=== PATIENT | male | born 1970 | race Caucasian/White ===

== ENCOUNTER 2016-09-26 23:38 | Emergency (ER) | payer OTHER ==
[~2016-09-26] VITALS: Ht 172.7 cm; Wt 90.4 kg
[~2016-09-26 23:38] MED LIST: BACTDS PO; BEN50 PO; CEPH-443 PO; CLIN-73 PO; HYDR-762 PO; IBUP-1542 PO; ONDA4TAB35 PO; PRED20TA PO; TAMS-14 PO
[2016-09-26 23:51] VITALS: Ht 172.7 cm; Wt 90.4 kg
[2016-09-27] MEDS ORDERED: FLUORESCEIN STRIP RIGHT EYE ONE (01:30)
[2016-09-27] MEDS ORDERED: TETRACAINE 0.5% 4 ML OPH RIGHT EYE ONE (01:30)
--- NOTE | 2016-09-27 02:25 | RADRPT ---
PROCEDURE: Ultrasound examination of the right orbit. CLINICAL INDICATION: Right eye redness and pain. TECHNIQUE: Multiple sonographic images of the right orbital globe and retina were obtained. COMPARISON: None. FINDINGS: The right orbital globe is normal in size and configuration. There is no abnormal echogenicity. The retina is unremarkable. No echogenic foreign body is identified. IMPRESSION: Unremarkable ultrasound examination. .Nam Renteria MD, MD Date Time Electronically viewed and signed by .Nam Renteria MD, on 09/27/2016 02:25 .T/
[2016-09-27] MEDS ORDERED: TBR.3OP5 RIGHT EYE (02:44)
[2016-09-27] MEDS ORDERED: ERYTOPOI RIGHT EYE (02:48)
--- NOTE | 2016-09-27 02:55 | ERD ---
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 It happened around 1 or 2 PM. Pain is described as a burning sensation. Patient states the pain is intermittent. He denies any vision loss. Denies any headache. Patient denies any photophobia or pain with eye movements. He denies any other eye trauma. ROS 12 point review of systems was done, all negative except per HPI. Medications Home Meds Active Scripts Erythromycin* (Erythromycin* Ophthalmic) 1 Applic Oint, 1 APPLIC RIGHT EYE QID for 7 Days Prov:FRANKY OLMEDO 09/27/16 Clindamycin Hcl* (Clindamycin Hcl*) 300 Mg Capsule, 300 MG PO TID for 10 Days, CAP Prov:COMPA FRYE PA-C 04/28/16 Prednisone* (Prednisone*) 20 Mg Tab, 40 MG PO DAILY for 4 Days, TAB Prov:COMPA FRYE PA-C 04/28/16 Diphenhydramine Hcl* (Benadryl*) 50 Mg Cap, 50 MG PO Q6H Y for ITCHING/RASH, # 30 CAP Prov:COMPA FRYE PA-C 04/28/16 Ibuprofen* (Motrin*) 600 Mg Tab, 600 MG PO Q6, #30 TAB Prov:FRANKY OLMEDO 04/24/16 Cephalexin* (Keflex*) 500 Mg Capsule, 500 MG PO QID for 7 Days, CAP Prov:FRANKY OLMEDO 04/24/16 Sulfamethoxazole-Trimethoprim* (Bactrim* DS) 800-160 Mg Tab, 1 TAB PO BID for 7 Days, TAB Prov:FRANKY OLMEDO 04/24/16 Ondansetron Hcl* (Zofran* ODT) 4 mg -ODT Tab.disper, 4 MG PO Q6 Y for NAUSEA AND /OR VOMITING, #30 TAB Prov:DAMI LUTHER MD 05/15/15 Tamsulosin Hcl* (Flomax*) 0.4 Mg Cap.er.24h, 0.4 MG PO QPM, #30 CAP Prov:DAMI LUTHER MD 05/15/15 Hydrocodone Bit-Acetaminophen* (Martin*) 10-325 Mg Tablet, 1 TAB PO Q6 Y for PAIN , #12 TAB Prov:DAMI LUTHER MD 05/15/15 Allergies Allergies: Coded Allergies: hydrocodone (Verified Adverse Reaction, Unknown, 04/24/16) PMhx/Soc History of Surgery: No Anesthesia Reaction: No Hx Neurological Disorder: No Hx Respiratory Disorders: No Hx Cardiac Disorders: No Hx Psychiatric Problems: No Hx Miscellaneous Medical Probl: No Hx Alcohol Use: No Hx Substance Use: No Hx Tobacco Use: No Smoking Status: Never smoker Physical Exam Vitals Vital Signs Date Time Temp Pulse Resp B/P Pulse Ox O2 Delivery O2 Flow Rate FiO2 09/26/16 23:51 98.2 90 20 136/86 100 Physical Exam GENERAL: The patient is well developed and appropriate for usual state of health , in no apparent distress. HEENT: Atraumatic. Injected conjunctiva with some tearing. Extraocular muscles are grossly intact. No foreign body is seen. Bilateral tympanic membranes are clear with no evidence of erythema, effusion or dulling of the light reflex. The oropharynx is clear with no erythema or exudates. CHEST: Clear to auscultation bilaterally. There are no rales, wheezes or rhonchi. HEART: Regular rate and rhythm. No murmurs, clicks, rubs or gallops. NEURO: Alert and oriented. SKIN: There is no apparent rash or petechia. The skin is warm and dry. Results 24 hrs Current Medications Medications (Trade) Dose Ordered Sig/Maria E Route PRN Reason Start Time Stop Time Status Last Admin Dose Admin Fluorescein Sodium (Yikxp-R-Cqeur) 1 strip ONCE ONCE RIGHT EYE 09/27/16 01:30 09/27/16 01:31 DC Tetracaine HCl (Tetracaine 0.5% Steri-Unit Justine) 1 drop ONCE ONCE RIGHT EYE 09/27/16 01:30 09/27/16 01:31 DC Erythromycin (Erythromycin Oph Oint) 1 applic ONCE ONCE RIGHT EYE 09/27/16 03:00 09/27/16 03:01 Procedures/MDM Subconjunctival hemorrhage, bacterial conjunctivitis, viral conjunctivitis, allergic conjunctivitis,orbital cellulitis, hyphema, corneal abraion, keratitis , uveitis, angle-closure glaucoma, retinal detachment, ruptured globe. This is likely: A corneal abrasion. There is no evidence of foreign body on physical examination. I examined to the eye with fluorescein stain there was one small corneal abrasion. Ultrasound was done and there was no evidence of metal object in the globe. There is no evidence of retinal detachment or ruptured globe. At this time I doubt corneal ulceration. Patient will be sent home with erythromycin. 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. He was given information for [facility]. Patient is to follow-up with his primary care doctor within 1-2 days or return to ER sooner if symptoms worsen. By medical decision making was discussed with the patient understands and agrees with plan Departure Diagnosis: Primary Impression: Eye injury Condition: Stable Patient Instructions: Eye Protection at Work: First Aid Referrals: [facility] Hours: Mon - Fri 9:00 AM - 5:00 PM Additional Instructions: Call your primary care doctor TOMORROW for an appointment during the next 1-2 days.See the doctor sooner or return here if your condition worsens before your appointment time. PLEASE SEE OPTHALMOLOGIST TOMORROW! FRANKY OLMEDO Sep 27, 2016 02:55
[2016-09-27 02:58] VITALS: BP 132/82; PULSE 74; RESP 16
[2016-09-27] MEDS ORDERED: ERYTHROMYCIN 1 GM OPH OINT RIGHT EYE ONE (03:00)
== END 2016-09-27 03:04 | disposition home or self-care (01) ==
LOC: FTE 23:38
DX: S05.91XA Unspecified injury of right eye and orbit, initial encounter (principal); X58.XXXA Exposure to other specified factors, initial encounter; Y92.9 Unspecified place or not applicable
CPT/HCPCS: 76536; Z7502; Z7610